=== PATIENT | female | born 1965 | race Caucasian/White ===

== ENCOUNTER 2017-11-09 00:33 | Emergency (ER) | payer OTHER ==
[~2017-11-09] VITALS: Ht 162.6 cm; Wt 74.2 kg
[~2017-11-09 00:33] MED LIST: AVENTYL,PAMELOR50 MG PO; CLARITIN10 M3 PO; COLACE CLEAR50 MG GT; CREON DR 12,001 EAC1 GT; DESYREL100 MG GT; DOCUSATE SODIU100 MG PO; FLONASE16 G1 BOTH NARES; LOVENOX30 MG/0.3 SC; MUCINEX600 MG PO; NABI650T GT; NAPROSYN500 MG PO; NAPROXEN500 MG PO; NICODERM CQ1 EAC1 TD; OXAYDO5 MG GT; PROVENTIL,2.5 MG/3 M IH; SENNA8.6 MG GT; SORBUTUSS LIQU474 ML GT; TYLENOL REGULA325 MG GT
[2017-11-09 00:37] VITALS: BP 175/100
== END 2017-11-09 02:14 | disposition left against medical advice (07) ==
LOC: EME 00:33
DX: R22.1 Localized swelling, mass and lump, neck (principal); R22.2 Localized swelling, mass and lump, trunk; H92.01 Otalgia, right ear; Z87.820 Personal history of traumatic brain injury; Z53.21 Procedure and treatment not carried out due to patient leaving prior to being seen by health care provider